=== PATIENT | female | born 1990 | race Caucasian/White ===

== ENCOUNTER 2020-04-14 12:36 | Emergency (ER) | payer MEDICAID ==
[~2020-04-14] VITALS: Ht 160 cm; Wt 65.0 kg
[2020-04-14 13:02] VITALS: BP 105/70
== END 2020-04-14 13:31 | disposition home or self-care (01) ==
LOC: ER 12:37
DX: Z02.89 Encounter for other administrative examinations (principal); Z88.8 Allergy status to other drugs, medicaments and biological substances
CPT/HCPCS: 99281